=== PATIENT | female | born 1950 | race Caucasian/White ===

== ENCOUNTER 2018-05-17 03:45 | Emergency (ER) | payer OTHER ==
[~2018-05-17] VITALS: Ht 157.5 cm; Wt 60.8 kg
--- NOTE | ~2018-05-17 | EKG ---
[place] [address] [employer] [place] [address] ELECTROCARDIOGRAM REPORT Name: LETITIA HERNANDES Room [facility]: [facility] [id number] Admission: 05/17/18 Attend Phys: Discharge: Date of : 52 Report #: [id number] THIS REPORT FOR: //name// [facility] ED Test Date: 2018-05-17 Test Time: 04:36:11 Pat Name: LETITIA HERNANDES Department: Room: Gender: F Interlacer: KAYCEE : 1950 Requested By: Gary Lombardi Order Number: [id number] MD: Gato Morfin Measurements Intervals [place] Rate: 59 P: 71 SC: 135 QRS: 25 QRSD: 90 T: 60 QT: 428 QTc: 424 Interpretive Statements Sinus bradycardia Borderline low voltage, extremity leads Compared to ECG 10/09/2001 09:14:32 No significant change was found Electronically Signed On 05-17-2018 8:14:55 CDT by Gato Morfin [email or web address] <ELECTRONICALLY SIGNED> By: Gato Morfin MD, [facility] 05/17/18 0814 0436 0436 Gato Morfin MD, FACC /EPI
[~2018-05-17 03:45] MED LIST: NORCO 5-325 TA1 EACH PO; SYNTHROID125 MC1 PO; ZOFRAN ODT4 MG PO
[2018-05-17] MEDS ORDERED: FLEXERIL PO (03:59)
[2018-05-17] MEDS ORDERED: IBUPROFEN 800800 M1 PO (04:00)
[2018-05-17] MEDS ORDERED: MORPHINE SULFAT15 M3 PO (04:06)
[2018-05-17 05:25] VITALS: BP 115/65
== END 2018-05-17 05:26 | disposition home or self-care (01) ==
LOC: ER 03:45
DX: M54.6 Pain in thoracic spine (principal); M25.512 Pain in left shoulder; F17.210 Nicotine dependence, cigarettes, uncomplicated